=== PATIENT | female | born 1935 | race Caucasian/White ===

== ENCOUNTER 2019-09-15 15:46 | Inpatient (IN) ==
[2019-09-15] MEDS ORDERED: ALBUTEROL/IPRATROPIUM 3 ML NEB RESP TX STA ×2 (17:04→20:01)
[2019-09-15] MEDS ORDERED: SODIUM CHLORIDE 0.9% 1,000 ML IV STA (17:04)
[2019-09-15 18:34] LABS: Basophils # 0.1 10*3/uL (0.0-0.2); Basophils % 0.5 % (0.0-0.8); Eosinophils # 0.7 10*3/uL (0.0-0.87); Eosinophils % 5.2 % (0.00-10.9); Hematocrit 42.2 VOL% (35.7-47.0); Hemoglobin 13.5 GM/DL (12.0-16.0); Immature Granulocytes % 0.7 %; Immature Granulocytes Absolute 0.09 #; Lymphocytes # 3.7 10*3/uL (1.4-4.0); Lymphocytes % 27.7 % (21.3-54.2); Mean Corpuscular Volume 90.6 FL (87-102); Mean Platelet Volume 11.7 FL (9.6-12.0); Monocytes % 8.9 % (1.7-12.7); Platelet Count 211 T/CUMM (130-400); Red Blood Count 4.66 MC/CUMM (3.8-5.5); Red Cell Distribution Width 13.5 % (9.3-17.3); White Blood Count 13.2 T/CUMM (4-12)
[2019-09-15 18:46] LABS: ABG Base Excess 0.5 MMOL/L (-2.5-2.5); ABG HCO3 24.9 MMOL/L (20-26); ABG PCO2 39.8 MM HG (35-48); ABG PH 7.407 (7.35-7.45); ABG TCO2 22.1 MMOL/L (23-27)
[2019-09-15 18:46] LABS: PT Patient Result 10.9 SECS (9.6-12.2)
[2019-09-15 19:06] LABS: Albumin 3.2 G/DL (3.4-5.0); Bilirubin,Total 0.6 MG/DL (0.2-1.0); Calcium 8.5 MG/DL (8.5-10.1); Osmolality,Calculated 293.4 MOS/KG (273-304); Total Protein 6.5 G/DL (6.4-8.3)
[2019-09-15] MEDS ORDERED: methylPREDNISolone SOD SUC 125 MG/2 ML VIAL IV STA (20:01)
[2019-09-15 21:23] LABS: Apearance,Urine CLEAR (Clear); Bilirubin,Urine Negative (Negative); Blood, Urine Negative (Negative); Glucose,Urine (UA) Negative (Negative); Hyaline Casts,Urine 52 /LPF (0-3); Ketones,Urine Negative (Negative); Mucus,Urine Occasional /LPF (Occasional); Nitrite,Urine Negative (Negative); Protein,Urine Negative; RBC,Urine <1 /HPF (0-4); Squamous Epithelial Cell,Urine Occasional /HPF (0-10); Urine Color Straw (Yellow); Urine Specific Gravity 1.006 (1.001-1.035); Urine Urobilinogen < 2.0 EU/DL (0.2-1.0); WBC,Urine 1 /HPF (0-6)
[2019-09-15] MEDS ORDERED: AZITHROMYCIN INJ 500 MG in SODIUM CHLORIDE 0.9% 250 ML IV STA (21:58)
[2019-09-15] MEDS ORDERED: GLUCAGON 1 MG VIAL IM PRN (23:39)
[2019-09-15] MEDS ORDERED: ACETAMINOPHEN 325 MG TABLET PO PRN (23:39)
[2019-09-15] MEDS ORDERED: ONDANSETRON 4 MG/2 ML VIAL IV PRN (23:39)
[2019-09-15] MEDS ORDERED: DEXTROSE 50% 25 GM/50 ML VIAL IV PRN (23:39)
[2019-09-15] MEDS ORDERED: SODIUM CHLORIDE 0.9% 1,000 ML IV SCH (23:45)
[2019-09-16] MEDS: methylPREDNISolone SOD SUC 40 MG/1 ML VIAL IV SCH ×2 (03:22→12:31)
[2019-09-16] MEDS: AZITHROMYCIN INJ 500 MG in SODIUM CHLORIDE 0.9% 250 ML IV SCH (03:22)
[2019-09-16] MEDS: ALBUTEROL/IPRATROPIUM 3 ML NEB RESP TX PRN ×2 (05:02→09:29)
[2019-09-16 06:05] LABS: Basophils % 0.3 % (0.0-0.8); Eosinophils % 0.1 % (0.00-10.9); Hematocrit 37.3 VOL% (35.7-47.0); Hemoglobin 11.8 GM/DL (12.0-16.0); Immature Granulocytes % 0.4 %; Immature Granulocytes Absolute 0.05 #; Lymphocytes # 1.2 10*3/uL (1.4-4.0); Lymphocytes % 10.4 % (21.3-54.2); Mean Corpuscular HGB Conc 31.6 GM/DL (32-36); Mean Corpuscular Volume 91.4 FL (87-102); Mean Platelet Volume 12.2 FL (9.6-12.0); Monocytes % 0.8 % (1.7-12.7); Platelet Count 205 T/CUMM (130-400); Red Blood Count 4.08 MC/CUMM (3.8-5.5); Red Cell Distribution Width 13.5 % (9.3-17.3); White Blood Count 11.8 T/CUMM (4-12)
[2019-09-16 06:47] LABS: Albumin 3.1 G/DL (3.4-5.0); Bilirubin,Total 0.8 MG/DL (0.2-1.0); Calcium 8.3 MG/DL (8.5-10.1); Osmolality,Calculated 304.5 MOS/KG (273-304); Total Protein 6.4 G/DL (6.4-8.3)
[2019-09-16] MEDS ORDERED: ACETYLCYSTEINE 20% 6,000 MG/30 ML VIAL RESP TX SCH (07:00)
[2019-09-16] MEDS: ACETYLCYSTEINE 20% 800 MG/4 ML VIAL RESP TX SCH ×3 (07:55→13:35)
[2019-09-16] MEDS: INSULIN LISPRO 100 UNIT/ML SUBCUT SCH ×5 (08:32→21:46)
[2019-09-16] MEDS: ENOXAPARIN 30 MG/0.3 ML SYRINGE SUBCUT SCH (09:11)
[2019-09-16] MEDS: BUDESONIDE/FORMOTEROL 160-4.5 INHALER 6 GM INH SCH ×2 (09:11→21:47)
[2019-09-16] MEDS: carvediloL 3.125 MG TABLET PO SCH ×2 (10:51→16:51)
[2019-09-16] MEDS: EZETIMIBE 10 MG TABLET PO SCH (10:51)
[2019-09-16] MEDS: PANTOPRAZOLE 40 MG TABLET PO SCH (10:51)
[2019-09-16] MEDS: ASPIRIN 325 MG TABLET PO SCH (10:51)
[2019-09-16] MEDS ORDERED: BISACODYL 10 MG SUPP RECTAL ONE (13:32)
[2019-09-16] MEDS: LACTATED RINGERS 1,000 ML IV SCH (14:19)
[2019-09-16] MEDS: ATORVASTATIN 80 MG TABLET PO SCH (21:46)
[2019-09-17] MEDS: AZITHROMYCIN INJ 500 MG in SODIUM CHLORIDE 0.9% 250 ML IV SCH (00:30)
[2019-09-17] MEDS: methylPREDNISolone SOD SUC 40 MG/1 ML VIAL IV SCH (00:30)
[2019-09-17] MEDS: LACTATED RINGERS 1,000 ML IV SCH ×2 (04:48→18:27)
[2019-09-17 06:25] LABS: Calcium 8.5 MG/DL (8.5-10.1); Osmolality,Calculated 308.7 MOS/KG (273-304)
[2019-09-17] MEDS: BUDESONIDE/FORMOTEROL 160-4.5 INHALER 6 GM INH SCH ×2 (08:42→21:26)
[2019-09-17] MEDS: ENOXAPARIN 30 MG/0.3 ML SYRINGE SUBCUT SCH (08:43)
[2019-09-17] MEDS: INSULIN LISPRO 100 UNIT/ML SUBCUT SCH ×4 (08:43→21:25)
[2019-09-17] MEDS: PANTOPRAZOLE 40 MG TABLET PO SCH (10:10)
[2019-09-17] MEDS: carvediloL 3.125 MG TABLET PO SCH ×2 (10:10→16:31)
[2019-09-17] MEDS: ASPIRIN 325 MG TABLET PO SCH (10:10)
[2019-09-17] MEDS: EZETIMIBE 10 MG TABLET PO SCH (10:10)
[2019-09-17] MEDS: ALBUTEROL/IPRATROPIUM 3 ML NEB RESP TX PRN (11:19)
[2019-09-17] MEDS: ATORVASTATIN 80 MG TABLET PO SCH (20:40)
[2019-09-18] MEDS: AZITHROMYCIN INJ 500 MG in SODIUM CHLORIDE 0.9% 250 ML IV SCH (00:21)
[2019-09-18 05:50] LABS: Basophils % 0.1 % (0.0-0.8); Hematocrit 33.2 VOL% (35.7-47.0); Hemoglobin 10.6 GM/DL (12.0-16.0); Immature Granulocytes % 0.5 %; Immature Granulocytes Absolute 0.07 #; Lymphocytes # 2.9 10*3/uL (1.4-4.0); Lymphocytes % 19.8 % (21.3-54.2); Mean Corpuscular HGB Conc 31.9 GM/DL (32-36); Mean Platelet Volume 11.4 FL (9.6-12.0); Monocytes % 7.9 % (1.7-12.7); Neutrophils % 71.7 % (38.7-73.9); Platelet Count 183 T/CUMM (130-400); Red Blood Count 3.57 MC/CUMM (3.8-5.5); White Blood Count 14.5 T/CUMM (4-12)
[2019-09-18 06:38] LABS: Calcium 8.4 MG/DL (8.5-10.1); Osmolality,Calculated 306.1 MOS/KG (273-304)
[2019-09-18] MEDS: LACTATED RINGERS 1,000 ML IV SCH (07:57)
[2019-09-18] MEDS: EZETIMIBE 10 MG TABLET PO SCH (08:51)
[2019-09-18] MEDS: ASPIRIN 325 MG TABLET PO SCH (08:51)
[2019-09-18] MEDS: carvediloL 3.125 MG TABLET PO SCH (08:51)
[2019-09-18] MEDS: PANTOPRAZOLE 40 MG TABLET PO SCH (08:51)
[2019-09-18] MEDS: INSULIN LISPRO 100 UNIT/ML SUBCUT SCH ×2 (08:52→12:36)
[2019-09-18] MEDS: ENOXAPARIN 30 MG/0.3 ML SYRINGE SUBCUT SCH (08:53)
[2019-09-18] MEDS: BUDESONIDE/FORMOTEROL 160-4.5 INHALER 6 GM INH SCH (08:53)
[2019-09-18 12:22] VITALS: BP 133/86
== END 2019-09-18 12:22 | disposition hospice, home (50) | DRG 191 ==
LOC: N.ED 15:46 → SUATTDRO 23:39 → N.EDINP 23:39 → N.5E 23:56
PROVIDERS: ADMIT Internal Medicine Geriatric Medicine; ATTEND Internal Medicine